=== PATIENT | male | born 1990 | race Caucasian/White ===

== ENCOUNTER 2018-02-12 16:14 | Inpatient (IN) | payer OTHER ==
[2018-02-12] MEDS: HEPARIN 25000 UNITS/250 ML 250 ML IV (17:29)
[2018-02-12] MEDS ORDERED: HEPARIN 1000 UNITS/ML 10 ML INJ IV (17:30)
[2018-02-12] MEDS ORDERED: ALBUTEROL/IPRATROPIUM (NEB) 3 ML AMP HHN (17:30)
[2018-02-12] MEDS ORDERED: NACL 0.9% 3 ML SYG IV (18:00)
[2018-02-12] MEDS ORDERED: DOCUSATE SODIUM 100 MG CAP PO (18:00)
[2018-02-12] MEDS: morphine 2 MG INJ IV ×2 (20:09→23:48)
[2018-02-12 20:58] LABS: PARTIAL THROMBOPLASTIN TIME 56.2 Sec (23.0-35.0)
[2018-02-12 21:05] LABS: ALANINE AMINOTRANSFERASE 34 IU/L (13-69); ALBUMIN 3.4 g/dl (3.3-4.9); ALKALINE PHOSPHATASE 194 IU/L (42-121); ANION GAP 11 (8-16); ASPARTATE AMINO TRANSFERASE 63 IU/L (15-46); BILIRUBIN,INDIRECT 0.5 mg/dl (0-1.1); BILIRUBIN,TOTAL 0.5 mg/dl (0.2-1.3); BLOOD UREA NITROGEN 6 mg/dl (7-20); CALCIUM 8.6 mg/dl (8.4-10.2); CARBON DIOXIDE 27 mmol/L (21-31); CHLORIDE 102 mmol/L (97-110); GLUCOSE 130 mg/dl (70-220); POTASSIUM 3.4 mmol/L (3.5-5.1); SODIUM 137 mmol/L (135-144); TOTAL PROTEIN 6.8 g/dl (6.1-8.1)
[2018-02-12] MEDS: HEPARIN 1000 UNITS/ML 10 ML INJ IV (21:22)
[2018-02-12] MEDS: HYDROCODONE/APAP (5/325) TAB PO (21:59)
[2018-02-13 03:23] LABS: ADD MAN DIFF? NO
[2018-02-13 03:25] LABS: WHITE BLOOD COUNT 11.2 10^3/ul (4.8-10.8)
[2018-02-13 03:25] LABS: BASOPHILS % 0.3 % (0.0-2.0); EOSINOPHILS # 0.1 10^3/ul (0.0-0.5); EOSINOPHILS % 1.3 % (0.0-7.0); HEMATOCRIT 32.5 % (42.0-52.0); HEMOGLOBIN 10.5 g/dl (14.0-18.0); LYMPHOCYTES % 18.2 % (15.0-51.0); MEAN CORPUSCULAR HEMOGLOBIN 27.8 pg (29.0-33.0); MEAN CORPUSCULAR HGB CONC 32.3 g/dl (32.0-37.0); MEAN PLATELET VOLUME 10.3 fl (7.4-10.4); MONOCYTE # 1.3 10^3/ul (0.3-0.9); MONOCYTES % 11.2 % (0.0-11.0); NEUTROPHIL # 7.7 10^3/ul (1.6-7.5); NEUTROPHILS % 68.6 % (39.0-77.0); PLATELET COUNT 129 10^3/UL (140-415); POSITIVE DIFF @See below; RED BLOOD COUNT 3.78 10^6/ul (4.70-6.10); RED CELL DISTRIBUTION WIDTH 13.9 % (11.5-14.5)
[2018-02-13 03:55] LABS: PARTIAL THROMBOPLASTIN TIME 93.2 Sec (23.0-35.0)
[2018-02-13] MEDS: PANTOPRAZOLE (EC) 40 MG TAB PO (06:13)
[2018-02-13] MEDS: HYDROCODONE/APAP (5/325) TAB PO ×3 (06:37→23:12)
[2018-02-13] MEDS: HEPARIN 25000 UNITS/250 ML 250 ML IV ×4 (07:49→20:30)
[2018-02-13 10:09] LABS: PARTIAL THROMBOPLASTIN TIME 62.3 Sec (23.0-35.0)
[2018-02-13] MEDS: MAGNESIUM HYDROXIDE 30ML CUP PO (10:33)
[2018-02-13] MEDS: ACETAMINOPHEN 325 MG TAB PO (10:33)
[2018-02-13] MEDS: SOD CHLORIDE 0.9% 100 ML (17:22)
[2018-02-13] MEDS: IOHEXOL 0 ML (17:23)
[2018-02-13] MEDS: IOHEXOL 350MG/ML 50 ML BTL (17:23)
[2018-02-13 17:44] LABS: INR 1.13; PROTIME 14.7 Sec (11.9-14.9); PT RATIO 1.1
[2018-02-13 18:15] LABS: URIC ACID 4.7 mg/dl (3.1-7.9)
[2018-02-13 18:22] LABS: PARTIAL THROMBOPLASTIN TIME 83.4 Sec (23.0-35.0)
[2018-02-13] MEDS: POTASSIUM CHLORIDE 100 ML IVPB ×2 (18:34→22:11)
[2018-02-13] MEDS: morphine 2 MG INJ IV (20:35)
[2018-02-13] MEDS ORDERED: APIXABAN 5 MG TABLET PO (21:00)
[2018-02-14 01:30] LABS: PARTIAL THROMBOPLASTIN TIME 95.5 Sec (23.0-35.0)
[2018-02-14] MEDS: morphine 2 MG INJ IV ×4 (02:49→23:20)
[2018-02-14] MEDS: PANTOPRAZOLE 40 MG INJ IV (06:20)
[2018-02-14] MEDS: HEPARIN 25000 UNITS/250 ML 250 ML IV (06:27)
[2018-02-14 07:00] LABS: ALANINE AMINOTRANSFERASE 104 IU/L (13-69); ALBUMIN 3.5 g/dl (3.3-4.9); ALBUMIN/GLOBULIN RATIO 0.94; ALKALINE PHOSPHATASE 254 IU/L (42-121); ANION GAP 12 (8-16); ASPARTATE AMINO TRANSFERASE 82 IU/L (15-46); BILIRUBIN,INDIRECT 0.7 mg/dl (0-1.1); BILIRUBIN,TOTAL 0.7 mg/dl (0.2-1.3); CALCIUM 8.9 mg/dl (8.4-10.2); CARBON DIOXIDE 28 mmol/L (21-31); CHLORIDE 101 mmol/L (97-110); CREATININE 0.59 mg/dl (0.61-1.24); GLUCOSE 111 mg/dl (70-220); POTASSIUM 4.1 mmol/L (3.5-5.1); SODIUM 137 mmol/L (135-144); TOTAL PROTEIN 7.2 g/dl (6.1-8.1)
[2018-02-14 07:48] LABS: BLOOD UREA NITROGEN 7 mg/dl (7-20)
[2018-02-14] MEDS: FENTAnyl 50 MCG/ML VIAL (15:10)
[2018-02-14] MEDS: LIDOCAINE 1% (MPF) 5 ML VIAL ×2 (15:10→15:32)
[2018-02-14] MEDS: MIDAZOLAM 1 MG/ML 2 ML INJ (15:15)
[2018-02-14] MEDS: SOD CHLORIDE 0.9% 250 ML (15:20)
[2018-02-14] MEDS: HYDROCODONE/APAP (5/325) TAB PO (21:47)
[2018-02-14] MEDS: ACETAMINOPHEN 325 MG TAB PO (23:19)
[2018-02-15] MEDS: PANTOPRAZOLE 40 MG INJ IV (05:28)
[2018-02-15] MEDS: morphine 2 MG INJ IV ×4 (05:29→22:45)
[2018-02-15 05:42] LABS: ADD MAN DIFF? NO
[2018-02-15 05:48] LABS: WHITE BLOOD COUNT 11.2 10^3/ul (4.8-10.8)
[2018-02-15 05:48] LABS: BASOPHILS % 0.2 % (0.0-2.0); EOSINOPHILS # 0.1 10^3/ul (0.0-0.5); EOSINOPHILS % 1.1 % (0.0-7.0); HEMATOCRIT 31.2 % (42.0-52.0); HEMOGLOBIN 10.2 g/dl (14.0-18.0); LYMPHOCYTES # 1.1 10^3/ul (0.8-2.9); LYMPHOCYTES % 9.6 % (15.0-51.0); MEAN CORPUSCULAR HEMOGLOBIN 27.7 pg (29.0-33.0); MEAN CORPUSCULAR HGB CONC 32.7 g/dl (32.0-37.0); MEAN CORPUSCULAR VOLUME 84.8 fl (82.0-101.0); MEAN PLATELET VOLUME 10.4 fl (7.4-10.4); MONOCYTE # 1.1 10^3/ul (0.3-0.9); NEUTROPHIL # 8.8 10^3/ul (1.6-7.5); NEUTROPHILS % 78.7 % (39.0-77.0); PLATELET COUNT 170 10^3/UL (140-415); RED BLOOD COUNT 3.68 10^6/ul (4.70-6.10)
[2018-02-15 06:07] LABS: PARTIAL THROMBOPLASTIN TIME 68.3 Sec (23.0-35.0)
[2018-02-15 06:10] LABS: ALANINE AMINOTRANSFERASE 85 IU/L (13-69); ALBUMIN 3.5 g/dl (3.3-4.9); ALBUMIN/GLOBULIN RATIO 0.92; ALKALINE PHOSPHATASE 256 IU/L (42-121); ANION GAP 13 (8-16); ASPARTATE AMINO TRANSFERASE 45 IU/L (15-46); BILIRUBIN,INDIRECT 0.8 mg/dl (0-1.1); BILIRUBIN,TOTAL 0.8 mg/dl (0.2-1.3); BLOOD UREA NITROGEN 6 mg/dl (7-20); CALCIUM 9.1 mg/dl (8.4-10.2); CARBON DIOXIDE 29 mmol/L (21-31); CHLORIDE 98 mmol/L (97-110); CREATININE 0.61 mg/dl (0.61-1.24); GLUCOSE 108 mg/dl (70-220); POTASSIUM 3.7 mmol/L (3.5-5.1); SODIUM 136 mmol/L (135-144); TOTAL PROTEIN 7.3 g/dl (6.1-8.1)
[2018-02-15] MEDS: HEPARIN 25000 UNITS/250 ML 250 ML IV ×3 (06:49→11:00)
[2018-02-15] MEDS: HYDROCODONE/APAP (5/325) TAB PO (13:36)
[2018-02-15 13:45] LABS: PARTIAL THROMBOPLASTIN TIME 67.3 Sec (23.0-35.0)
[2018-02-15 14:57] LABS: HEPATITIS B SURFACE ANTIGEN NEGATIVE (NEGATIVE)
[2018-02-15 15:01] LABS: CARCINOEMBRYONIC ANTIGEN 0.4 ng/ml (0.0-5.0)
[2018-02-15 15:02] LABS: CANCER ANTIGEN 19-9 < 1.4 U/ml (0.0-37.0)
[2018-02-15 15:15] LABS: HEPATITIS B CORE ANTIBODY NEGATIVE (NEGATIVE)
[2018-02-15 15:52] LABS: HEPATITIS C VIRAL ANTIBODY NEGATIVE (NEGATIVE)
[2018-02-15] MEDS: APIXABAN 5 MG TABLET PO (15:59)
[2018-02-16] MEDS: HYDROCODONE/APAP (5/325) TAB PO ×2 (00:27→14:37)
[2018-02-16] MEDS: APIXABAN 5 MG TABLET PO ×3 (00:51→21:25)
[2018-02-16] MEDS: MAGNESIUM HYDROXIDE 30ML CUP PO (05:42)
[2018-02-16] MEDS: PANTOPRAZOLE 40 MG INJ IV (05:42)
[2018-02-16] MEDS: BISACODYL (EC) 5 MG TAB PO (08:22)
[2018-02-16] MEDS ORDERED: HYDROCODONE/APAP (5/325) TAB PO (14:00)
[2018-02-16] MEDS: ONDANSETRON 4 MG INJ IV ×2 (14:26)
[2018-02-16] MEDS: LORAZEPAM (2 MG/ML PO SYG) SL (15:46)
[2018-02-16] MEDS: morphine 2 MG INJ IV ×2 (17:24→21:30)
[2018-02-16] MEDS: ALPRAZOLAM 0.25 MG TAB PO ×2 (18:34→21:25)
[2018-02-17] MEDS: HYDROCODONE/APAP (5/325) TAB PO ×4 (00:40→23:59)
[2018-02-17] MEDS: morphine 2 MG INJ IV ×4 (04:22→22:53)
[2018-02-17] MEDS: PANTOPRAZOLE (EC) 40 MG TAB PO (06:19)
[2018-02-17 06:54] LABS: ADD MAN DIFF? NO
[2018-02-17 06:58] LABS: BASOPHILS % 0.3 % (0.0-2.0); EOSINOPHILS # 0.1 10^3/ul (0.0-0.5); EOSINOPHILS % 0.7 % (0.0-7.0); HEMATOCRIT 31.2 % (42.0-52.0); HEMOGLOBIN 10.2 g/dl (14.0-18.0); LYMPHOCYTES % 9.1 % (15.0-51.0); MEAN CORPUSCULAR HEMOGLOBIN 27.5 pg (29.0-33.0); MEAN CORPUSCULAR HGB CONC 32.7 g/dl (32.0-37.0); MEAN CORPUSCULAR VOLUME 84.1 fl (82.0-101.0); MEAN PLATELET VOLUME 9.9 fl (7.4-10.4); MONOCYTE # 1.1 10^3/ul (0.3-0.9); MONOCYTES % 9.7 % (0.0-11.0); NEUTROPHIL # 8.7 10^3/ul (1.6-7.5); NEUTROPHILS % 79.5 % (39.0-77.0); PLATELET COUNT 277 10^3/UL (140-415); RED BLOOD COUNT 3.71 10^6/ul (4.70-6.10)
[2018-02-17 07:12] LABS: ANION GAP 15 (8-16); BLOOD UREA NITROGEN 8 mg/dl (7-20); CALCIUM 9.2 mg/dl (8.4-10.2); CARBON DIOXIDE 33 mmol/L (21-31); CHLORIDE 93 mmol/L (97-110); CREATININE 0.54 mg/dl (0.61-1.24); GLUCOSE 107 mg/dl (70-220); POTASSIUM 3.8 mmol/L (3.5-5.1); SODIUM 137 mmol/L (135-144)
[2018-02-17] MEDS: ALPRAZOLAM 0.25 MG TAB PO ×2 (08:09→21:19)
[2018-02-17] MEDS: APIXABAN 5 MG TABLET PO ×2 (08:09→21:19)
[2018-02-17] MEDS: BISACODYL (EC) 5 MG TAB PO (09:13)
[2018-02-17] MEDS: ONDANSETRON 4 MG INJ IV (13:22)
[2018-02-17] MEDS: LUBIPROSTONE 24 MCG CAP PO (18:39)
[2018-02-18] MEDS: morphine 2 MG INJ IV ×4 (04:15→22:06)
[2018-02-18 06:03] LABS: ALANINE AMINOTRANSFERASE 240 IU/L (13-69); ALBUMIN 3.3 g/dl (3.3-4.9); ALBUMIN/GLOBULIN RATIO 0.82; ALKALINE PHOSPHATASE 422 IU/L (42-121); ANION GAP 14 (8-16); ASPARTATE AMINO TRANSFERASE 144 IU/L (15-46); BILIRUBIN,INDIRECT 0.5 mg/dl (0-1.1); BILIRUBIN,TOTAL 0.5 mg/dl (0.2-1.3); BLOOD UREA NITROGEN 7 mg/dl (7-20); CALCIUM 9.1 mg/dl (8.4-10.2); CARBON DIOXIDE 33 mmol/L (21-31); CHLORIDE 94 mmol/L (97-110); CREATININE 0.65 mg/dl (0.61-1.24); GLUCOSE 107 mg/dl (70-220); SODIUM 137 mmol/L (135-144); TOTAL PROTEIN 7.3 g/dl (6.1-8.1)
[2018-02-18] MEDS: HYDROCODONE/APAP (5/325) TAB PO ×3 (06:31→23:46)
[2018-02-18] MEDS: PANTOPRAZOLE (EC) 40 MG TAB PO (06:31)
[2018-02-18] MEDS: ALPRAZOLAM 0.25 MG TAB PO ×2 (08:50→21:18)
[2018-02-18] MEDS: APIXABAN 5 MG TABLET PO ×2 (08:50→21:18)
[2018-02-18] MEDS: MAGNESIUM HYDROXIDE 30ML CUP PO (10:26)
[2018-02-18] MEDS: LUBIPROSTONE 24 MCG CAP PO (10:26)
[2018-02-19] MEDS: morphine LIQ (10 MG/5 ML) CUP PO ×4 (02:01→15:30)
[2018-02-19] MEDS: PANTOPRAZOLE (EC) 40 MG TAB PO (06:30)
[2018-02-19] MEDS: ALPRAZOLAM 0.25 MG TAB PO ×2 (08:11→20:59)
[2018-02-19] MEDS: APIXABAN 5 MG TABLET PO ×2 (08:11→20:59)
[2018-02-19 14:44] LABS: LACTATE DEHYDROGENASE 4071 IU/L (313-618)
[2018-02-19] MEDS: HYDROCODONE/APAP (5/325) TAB PO (18:13)
[2018-02-20] MEDS: HYDROCODONE/APAP (5/325) TAB PO ×2 (03:00→12:01)
[2018-02-20] MEDS: PANTOPRAZOLE (EC) 40 MG TAB PO (06:13)
[2018-02-20] MEDS ORDERED: ALBUTEROL 0.083% (NEB) 2.5 MG/3 ML AMP (07:00)
[2018-02-20] MEDS: ALPRAZOLAM 0.25 MG TAB PO ×2 (08:36→23:10)
[2018-02-20] MEDS: APIXABAN 5 MG TABLET PO ×2 (08:36→20:18)
[2018-02-20] MEDS: BISACODYL (EC) 5 MG TAB PO (13:52)
[2018-02-20] MEDS: morphine LIQ (10 MG/5 ML) CUP PO ×2 (14:39→20:18)
[2018-02-21] MEDS: HYDROCODONE/APAP (5/325) TAB PO ×3 (00:03→21:50)
[2018-02-21] MEDS: morphine LIQ (10 MG/5 ML) CUP PO ×3 (04:28→19:03)
[2018-02-21] MEDS: PANTOPRAZOLE (EC) 40 MG TAB PO (04:29)
[2018-02-21 05:07] LABS: WHITE BLOOD COUNT 11.8 10^3/ul (4.8-10.8)
[2018-02-21 05:07] LABS: ADD MAN DIFF? NO; BASOPHILS % 0.3 % (0.0-2.0); EOSINOPHILS # 0.1 10^3/ul (0.0-0.5); HEMATOCRIT 29.1 % (42.0-52.0); HEMOGLOBIN 9.4 g/dl (14.0-18.0); LYMPHOCYTES # 1.6 10^3/ul (0.8-2.9); LYMPHOCYTES % 13.9 % (15.0-51.0); MEAN CORPUSCULAR HEMOGLOBIN 27.2 pg (29.0-33.0); MEAN CORPUSCULAR HGB CONC 32.3 g/dl (32.0-37.0); MEAN CORPUSCULAR VOLUME 84.1 fl (82.0-101.0); MEAN PLATELET VOLUME 9.5 fl (7.4-10.4); MONOCYTE # 0.9 10^3/ul (0.3-0.9); MONOCYTES % 7.7 % (0.0-11.0); NEUTROPHIL # 8.9 10^3/ul (1.6-7.5); NEUTROPHILS % 75.4 % (39.0-77.0); PLATELET COUNT 312 10^3/UL (140-415); RED BLOOD COUNT 3.46 10^6/ul (4.70-6.10); RED CELL DISTRIBUTION WIDTH 14.9 % (11.5-14.5)
[2018-02-21 05:38] LABS: ANION GAP 11 (8-16); BLOOD UREA NITROGEN 7 mg/dl (7-20); CALCIUM 9.1 mg/dl (8.4-10.2); CARBON DIOXIDE 32 mmol/L (21-31); CHLORIDE 97 mmol/L (97-110); CREATININE 0.54 mg/dl (0.61-1.24); GLUCOSE 103 mg/dl (70-220); POTASSIUM 4.2 mmol/L (3.5-5.1); SODIUM 136 mmol/L (135-144)
[2018-02-21] MEDS: ALPRAZOLAM 0.25 MG TAB PO ×2 (09:06→20:41)
[2018-02-21] MEDS: APIXABAN 5 MG TABLET PO ×2 (09:07→20:41)
[2018-02-22] MEDS: morphine LIQ (10 MG/5 ML) CUP PO ×3 (02:10→17:24)
[2018-02-22] MEDS: PANTOPRAZOLE (EC) 40 MG TAB PO (06:13)
[2018-02-22] MEDS: HYDROCODONE/APAP (5/325) TAB PO ×2 (06:13→14:27)
[2018-02-22] MEDS: APIXABAN 5 MG TABLET PO (10:14)
[2018-02-22] MEDS: ALPRAZOLAM 0.25 MG TAB PO (10:18)
== END 2018-02-22 19:00 | disposition home health service (06) | DRG 722 ==
LOC: MS1 02-18 00:15 → TEL 16:14
PROC: 0FB13ZX Excision of Right Lobe Liver, Percutaneous Approach, Diagnostic (ICD-10-PCS; principal; 2018-02-14)
PROC: 02HV33Z Insertion of Infusion Device into Superior Vena Cava, Percutaneous Approach (ICD-10-PCS; 2018-02-19)
PROC: B548ZZA Ultrasonography of Superior Vena Cava, Guidance (ICD-10-PCS; 2018-02-19)
DX: C62.90 Malignant neoplasm of unspecified testis, unspecified whether descended or undescended (principal); I26.99 Other pulmonary embolism without acute cor pulmonale; I82.220 Acute embolism and thrombosis of inferior vena cava; C78.7 Secondary malignant neoplasm of liver and intrahepatic bile duct; M48.02 Spinal stenosis, cervical region; M54.30 Sciatica, unspecified side; R59.1 Generalized enlarged lymph nodes; M50.31 Other cervical disc degeneration, high cervical region; K59.00 Constipation, unspecified; Z79.02 Long term (current) use of antithrombotics/antiplatelets
CPT/HCPCS: 36569; 70551; 71045; 72141; 72146; 72158; 72196; 74178; 76870; 76937; 77012; 80048; 80053; 82105; 82378; 83036; 83615; 84560; 84702; 85025; 85610; 85730; 86301; 86704; 86803; 87340; 88307; 88313; 88331; 94060; 94664; 94726; 94729; 97110; 97116; 97162; 97530

== ENCOUNTER 2018-03-01 12:12 | Inpatient (IN) | payer OTHER ==
[2018-03-01] MEDS: HYDROmorphONE 1 MG/ML SYG IV ×2 (13:08→18:51)
[2018-03-01] MEDS: SOD CHLORIDE 0.9% 1,000 ML IV (13:08)
[2018-03-01] MEDS: ONDANSETRON 4 MG INJ IV (13:08)
[2018-03-01 13:19] LABS: ADD MAN DIFF? NO
[2018-03-01 13:23] LABS: BASOPHIL # 0.1 10^3/ul (0.0-0.1); BASOPHILS % 0.5 % (0.0-2.0); EOSINOPHILS # 0.1 10^3/ul (0.0-0.5); HEMATOCRIT 34.5 % (42.0-52.0); HEMOGLOBIN 10.9 g/dl (14.0-18.0); LYMPHOCYTES # 1.1 10^3/ul (0.8-2.9); LYMPHOCYTES % 11.1 % (15.0-51.0); MEAN CORPUSCULAR HEMOGLOBIN 26.5 pg (29.0-33.0); MEAN CORPUSCULAR HGB CONC 31.6 g/dl (32.0-37.0); MEAN CORPUSCULAR VOLUME 83.9 fl (82.0-101.0); MONOCYTE # 0.6 10^3/ul (0.3-0.9); MONOCYTES % 6.1 % (0.0-11.0); NEUTROPHILS % 80.3 % (39.0-77.0); PLATELET COUNT 477 10^3/UL (140-415); RED BLOOD COUNT 4.11 10^6/ul (4.70-6.10); RED CELL DISTRIBUTION WIDTH 14.3 % (11.5-14.5)
[2018-03-01 13:40] LABS: ALBUMIN 4.1 g/dl (3.3-4.9); ALBUMIN/GLOBULIN RATIO 0.87; ALKALINE PHOSPHATASE 649 IU/L (42-121); ANION GAP 13 (8-16); ASPARTATE AMINO TRANSFERASE 38 IU/L (15-46); BILIRUBIN,INDIRECT 0.2 mg/dl (0-1.1); BILIRUBIN,TOTAL 0.2 mg/dl (0.2-1.3); BLOOD UREA NITROGEN 9 mg/dl (7-20); CALCIUM 9.6 mg/dl (8.4-10.2); CARBON DIOXIDE 30 mmol/L (21-31); CHLORIDE 100 mmol/L (97-110); CREATININE 0.55 mg/dl (0.61-1.24); GLUCOSE 121 mg/dl (70-220); LIPASE 48 U/L (23-300); POTASSIUM 4.2 mmol/L (3.5-5.1); SODIUM 139 mmol/L (135-144); TOTAL PROTEIN 8.8 g/dl (6.1-8.1)
[2018-03-01 13:41] LABS: INR 1.16; PT RATIO 1.2
[2018-03-01 13:42] LABS: PARTIAL THROMBOPLASTIN TIME 38.2 Sec (23.0-35.0)
[2018-03-01 13:59] LABS: ALANINE AMINOTRANSFERASE 75 IU/L (13-69)
[2018-03-01] MEDS ORDERED: ONDANSETRON 4 MG INJ IV (14:00)
[2018-03-01] MEDS ORDERED: ACETAMINOPHEN 325 MG TAB PO (14:00)
[2018-03-01] MEDS: HYDROmorphONE 2 MG/ML SYG IV (14:14)
[2018-03-01 14:56] LABS: ADD UMIC NO; UR ASCORBIC ACID NEGATIVE (NEGATIVE); UR BILIRUBIN (Dip) NEGATIVE (NEGATIVE); UR BLOOD (Dip) NEGATIVE (NEGATIVE); UR CLARITY CLEAR (CLEAR); UR COLOR YELLOW (YELLOW); UR GLUCOSE (Dip) NEGATIVE (NEGATIVE); UR KETONES (Dip) NEGATIVE (NEGATIVE); UR LEUKOCYTE ESTERASE (Dip) NEGATIVE Leu/ul (NEGATIVE); UR NITRITE (Dip) NEGATIVE (NEGATIVE); UR SPECIFIC GRAVITY (Dip) 1.019 (1.003-1.030); UR TOTAL PROTEIN (Dip) NEGATIVE (NEGATIVE); UR UROBILINOGEN (Dip) 1+ mg/dL (NEGATIVE)
[2018-03-01] MEDS: morphine 10 MG INJ IV (16:14)
[2018-03-01] MEDS: LUBIPROSTONE 8 MCG CAPSULE PO (20:41)
[2018-03-01] MEDS: APIXABAN 5 MG TABLET PO (20:41)
[2018-03-01] MEDS ORDERED: CARISOPRODOL 350 MG TAB PO (21:00)
[2018-03-01] MEDS: HYDROCODONE/APAP (5/325) TAB PO (21:59)
[2018-03-02] MEDS: HYDROmorphONE 1 MG/ML SYG IV ×5 (01:22→20:09)
[2018-03-02] MEDS: HYDROCODONE/APAP (5/325) TAB PO ×3 (04:40→22:30)
[2018-03-02 05:14] LABS: ADD MAN DIFF? NO
[2018-03-02 05:26] LABS: BASOPHILS % 0.4 % (0.0-2.0); EOSINOPHILS # 0.2 10^3/ul (0.0-0.5); EOSINOPHILS % 2.2 % (0.0-7.0); HEMATOCRIT 31.9 % (42.0-52.0); HEMOGLOBIN 10.1 g/dl (14.0-18.0); LYMPHOCYTES # 1.6 10^3/ul (0.8-2.9); LYMPHOCYTES % 17.2 % (15.0-51.0); MEAN CORPUSCULAR HEMOGLOBIN 26.9 pg (29.0-33.0); MEAN CORPUSCULAR HGB CONC 31.7 g/dl (32.0-37.0); MEAN CORPUSCULAR VOLUME 85.1 fl (82.0-101.0); MEAN PLATELET VOLUME 9.4 fl (7.4-10.4); MONOCYTE # 0.6 10^3/ul (0.3-0.9); MONOCYTES % 6.5 % (0.0-11.0); NEUTROPHIL # 6.6 10^3/ul (1.6-7.5); NEUTROPHILS % 72.6 % (39.0-77.0); PLATELET COUNT 384 10^3/UL (140-415); RED BLOOD COUNT 3.75 10^6/ul (4.70-6.10); RED CELL DISTRIBUTION WIDTH 14.5 % (11.5-14.5)
[2018-03-02 05:26] LABS: WHITE BLOOD COUNT 9.1 10^3/ul (4.8-10.8)
[2018-03-02] MEDS: PANTOPRAZOLE (EC) 40 MG TAB PO (05:50)
[2018-03-02 06:00] LABS: ANION GAP 11 (8-16); BLOOD UREA NITROGEN 6 mg/dl (7-20); CARBON DIOXIDE 29 mmol/L (21-31); CHLORIDE 102 mmol/L (97-110); CREATININE 0.56 mg/dl (0.61-1.24); GLUCOSE 92 mg/dl (70-220); POTASSIUM 3.9 mmol/L (3.5-5.1); SODIUM 138 mmol/L (135-144)
[2018-03-02] MEDS: APIXABAN 5 MG TABLET PO ×2 (08:40→20:09)
[2018-03-02] MEDS: LUBIPROSTONE 8 MCG CAPSULE PO ×2 (08:40→20:08)
[2018-03-02] MEDS: CYCLOBENZAPRINE 10 MG TAB PO (09:08)
[2018-03-03] MEDS: HYDROmorphONE 1 MG/ML SYG IV ×6 (00:24→21:47)
[2018-03-03] MEDS: PANTOPRAZOLE (EC) 40 MG TAB PO (06:38)
[2018-03-03] MEDS: HYDROCODONE/APAP (5/325) TAB PO ×3 (06:39→23:13)
[2018-03-03] MEDS: LUBIPROSTONE 8 MCG CAPSULE PO ×2 (08:43→21:47)
[2018-03-03] MEDS: APIXABAN 5 MG TABLET PO ×2 (09:42→21:47)
[2018-03-04] MEDS: HYDROmorphONE 1 MG/ML SYG IV ×6 (01:49→21:27)
[2018-03-04] MEDS: HYDROCODONE/APAP (5/325) TAB PO ×4 (04:38→22:59)
[2018-03-04] MEDS: PANTOPRAZOLE (EC) 40 MG TAB PO (05:33)
[2018-03-04] MEDS: LUBIPROSTONE 8 MCG CAPSULE PO ×2 (08:49→20:32)
[2018-03-04] MEDS: APIXABAN 5 MG TABLET PO ×2 (08:49→20:32)
[2018-03-05] MEDS: HYDROmorphONE 1 MG/ML SYG IV ×6 (01:44→23:04)
[2018-03-05] MEDS: HYDROCODONE/APAP (5/325) TAB PO ×4 (03:39→17:27)
[2018-03-05] MEDS: PANTOPRAZOLE (EC) 40 MG TAB PO (06:11)
[2018-03-05] MEDS: LUBIPROSTONE 8 MCG CAPSULE PO ×2 (08:42→20:53)
[2018-03-05] MEDS: APIXABAN 5 MG TABLET PO ×2 (08:43→20:53)
[2018-03-05 10:35] LABS: ADD MAN DIFF? NO
[2018-03-05 10:41] LABS: BASOPHILS % 0.4 % (0.0-2.0); EOSINOPHILS # 0.2 10^3/ul (0.0-0.5); EOSINOPHILS % 2.1 % (0.0-7.0); HEMATOCRIT 33.5 % (42.0-52.0); HEMOGLOBIN 10.4 g/dl (14.0-18.0); LYMPHOCYTES % 14.6 % (15.0-51.0); MEAN CORPUSCULAR HEMOGLOBIN 26.3 pg (29.0-33.0); MEAN CORPUSCULAR VOLUME 84.8 fl (82.0-101.0); MEAN PLATELET VOLUME 9.8 fl (7.4-10.4); MONOCYTE # 0.4 10^3/ul (0.3-0.9); MONOCYTES % 5.5 % (0.0-11.0); NEUTROPHIL # 5.5 10^3/ul (1.6-7.5); NEUTROPHILS % 76.4 % (39.0-77.0); PLATELET COUNT 320 10^3/UL (140-415); RED BLOOD COUNT 3.95 10^6/ul (4.70-6.10); RED CELL DISTRIBUTION WIDTH 14.4 % (11.5-14.5)
[2018-03-05 10:41] LABS: WHITE BLOOD COUNT 7.1 10^3/ul (4.8-10.8)
[2018-03-05 11:16] LABS: ALANINE AMINOTRANSFERASE 44 IU/L (13-69); ALBUMIN 3.5 g/dl (3.3-4.9); ALBUMIN/GLOBULIN RATIO 0.83; ALKALINE PHOSPHATASE 441 IU/L (42-121); ANION GAP 11 (8-16); ASPARTATE AMINO TRANSFERASE 47 IU/L (15-46); BILIRUBIN,INDIRECT 0.3 mg/dl (0-1.1); BILIRUBIN,TOTAL 0.3 mg/dl (0.2-1.3); BLOOD UREA NITROGEN 5 mg/dl (7-20); CALCIUM 9.6 mg/dl (8.4-10.2); CARBON DIOXIDE 32 mmol/L (21-31); CHLORIDE 96 mmol/L (97-110); CREATININE 0.57 mg/dl (0.61-1.24); GLUCOSE 128 mg/dl (70-220); POTASSIUM 3.6 mmol/L (3.5-5.1); SODIUM 135 mmol/L (135-144); TOTAL PROTEIN 7.7 g/dl (6.1-8.1)
[2018-03-05] MEDS: morphine (ER) 15 MG TAB PO (20:53)
[2018-03-06] MEDS: HYDROCODONE/APAP (5/325) TAB PO ×2 (00:59→15:15)
[2018-03-06] MEDS: HYDROmorphONE 1 MG/ML SYG IV ×7 (03:04→23:10)
[2018-03-06] MEDS: PANTOPRAZOLE (EC) 40 MG TAB PO (05:56)
[2018-03-06] MEDS: APIXABAN 5 MG TABLET PO ×2 (08:43→20:01)
[2018-03-06] MEDS: morphine (ER) 15 MG TAB PO ×2 (08:44→20:01)
[2018-03-06] MEDS: LUBIPROSTONE 8 MCG CAPSULE PO ×2 (11:15→20:01)
[2018-03-06] MEDS ORDERED: ACETAMINOPHEN 500 MG TAB PO (12:30)
[2018-03-06] MEDS ORDERED: DIPHENHYDRAMINE 50 MG INJ IV (14:00)
[2018-03-06] MEDS ORDERED: DEXAMETHASONE 4 MG/ML 20 MG in SOD CHLORIDE 0.9% 50 ML IV (14:00)
[2018-03-06] MEDS: SOD CHLORIDE 0.9% 500 ML IVPB (14:51)
[2018-03-06] MEDS: SOD CHLORIDE 0.9% IV ×3 (15:56→23:38)
[2018-03-06] MEDS: ONDANSETRON IV (15:56)
[2018-03-06] MEDS: DEXAMETHASONE IV (15:56)
[2018-03-06] MEDS: SOD CHLORIDE 0.9% 1,000 ML IV (15:57)
[2018-03-06] MEDS: CISPLATIN IV (17:26)
[2018-03-06] MEDS: ETOPOSIDE IV (23:38)
[2018-03-07] MEDS: HYDROCODONE/APAP (5/325) TAB PO ×3 (00:36→21:46)
[2018-03-07] MEDS: HYDROmorphONE 1 MG/ML SYG IV ×8 (02:01→23:45)
[2018-03-07] MEDS: SOD CHLORIDE 0.9% 1,000 ML IV ×4 (03:20→20:50)
[2018-03-07] MEDS: BLEOMYCIN IVPB (04:31)
[2018-03-07] MEDS: SOD CHLORIDE 0.9% IVPB (04:31)
[2018-03-07] MEDS: PANTOPRAZOLE (EC) 40 MG TAB PO (05:02)
[2018-03-07] MEDS: morphine (ER) 15 MG TAB PO ×2 (08:12→20:12)
[2018-03-07] MEDS: APIXABAN 5 MG TABLET PO ×2 (08:12→20:10)
[2018-03-07 08:50] LABS: ADD MAN DIFF? NO
[2018-03-07 09:00] LABS: WHITE BLOOD COUNT 10.6 10^3/ul (4.8-10.8)
[2018-03-07 09:00] LABS: BASOPHILS % 0.1 % (0.0-2.0); EOSINOPHILS % 0.3 % (0.0-7.0); HEMATOCRIT 31.4 % (42.0-52.0); HEMOGLOBIN 9.6 g/dl (14.0-18.0); LYMPHOCYTES % 9.8 % (15.0-51.0); MEAN CORPUSCULAR HEMOGLOBIN 26.1 pg (29.0-33.0); MEAN CORPUSCULAR HGB CONC 30.6 g/dl (32.0-37.0); MEAN CORPUSCULAR VOLUME 85.3 fl (82.0-101.0); MEAN PLATELET VOLUME 9.9 fl (7.4-10.4); MONOCYTE # 0.8 10^3/ul (0.3-0.9); MONOCYTES % 7.5 % (0.0-11.0); NEUTROPHIL # 8.6 10^3/ul (1.6-7.5); NEUTROPHILS % 81.7 % (39.0-77.0); PLATELET COUNT 237 10^3/UL (140-415); RED BLOOD COUNT 3.68 10^6/ul (4.70-6.10); RED CELL DISTRIBUTION WIDTH 14.4 % (11.5-14.5)
[2018-03-07 09:21] LABS: MAGNESIUM 1.8 mg/dl (1.7-2.5)
[2018-03-07 09:21] LABS: PHOSPHORUS 4.1 mg/dl (2.5-4.9)
[2018-03-07 09:22] LABS: ANION GAP 7 (5-13); BLOOD UREA NITROGEN 6 mg/dl (7-20); CALCIUM 8.8 mg/dl (8.4-10.2); CARBON DIOXIDE 30 mmol/L (21-31); CHLORIDE 101 mmol/L (97-110); CREATININE 0.56 mg/dl (0.61-1.24); GLUCOSE 91 mg/dl (70-220); POTASSIUM 3.9 mmol/L (3.5-5.1); SODIUM 138 mmol/L (135-144)
[2018-03-07] MEDS: LUBIPROSTONE 8 MCG CAPSULE PO ×2 (11:45→20:10)
[2018-03-07] MEDS: SOD CHLORIDE 0.9% 500 ML IVPB (15:10)
[2018-03-07] MEDS: DEXAMETHASONE IV (17:20)
[2018-03-07] MEDS: SOD CHLORIDE 0.9% IV ×3 (17:20→22:22)
[2018-03-07] MEDS: ONDANSETRON IV (17:20)
[2018-03-07] MEDS: CISPLATIN IV (18:09)
[2018-03-07] MEDS: ETOPOSIDE IV (22:22)
[2018-03-08] MEDS: HYDROmorphONE 1 MG/ML SYG IV ×7 (02:50→21:04)
[2018-03-08 05:13] LABS: ADD MAN DIFF? NO
[2018-03-08 05:27] LABS: WHITE BLOOD COUNT 9.3 10^3/ul (4.8-10.8)
[2018-03-08 05:27] LABS: BASOPHILS % 0.2 % (0.0-2.0); EOSINOPHILS % 0.1 % (0.0-7.0); HEMATOCRIT 31.5 % (42.0-52.0); HEMOGLOBIN 9.9 g/dl (14.0-18.0); LYMPHOCYTES # 0.7 10^3/ul (0.8-2.9); LYMPHOCYTES % 7.6 % (15.0-51.0); MEAN CORPUSCULAR HEMOGLOBIN 26.7 pg (29.0-33.0); MEAN CORPUSCULAR HGB CONC 31.4 g/dl (32.0-37.0); MEAN CORPUSCULAR VOLUME 84.9 fl (82.0-101.0); MEAN PLATELET VOLUME 10.1 fl (7.4-10.4); MONOCYTE # 0.5 10^3/ul (0.3-0.9); MONOCYTES % 4.9 % (0.0-11.0); NEUTROPHIL # 8.1 10^3/ul (1.6-7.5); NEUTROPHILS % 86.8 % (39.0-77.0); PLATELET COUNT 265 10^3/UL (140-415); RED BLOOD COUNT 3.71 10^6/ul (4.70-6.10); RED CELL DISTRIBUTION WIDTH 14.6 % (11.5-14.5)
[2018-03-08 05:47] LABS: MAGNESIUM 1.8 mg/dl (1.7-2.5)
[2018-03-08] MEDS: PANTOPRAZOLE (EC) 40 MG TAB PO (05:48)
[2018-03-08 06:00] LABS: ANION GAP 10 (5-13); BLOOD UREA NITROGEN 6 mg/dl (7-20); CALCIUM 8.7 mg/dl (8.4-10.2); CARBON DIOXIDE 25 mmol/L (21-31); CHLORIDE 102 mmol/L (97-110); CREATININE 0.53 mg/dl (0.61-1.24); GLUCOSE 98 mg/dl (70-220); POTASSIUM 4.2 mmol/L (3.5-5.1); SODIUM 137 mmol/L (135-144)
[2018-03-08] MEDS: SOD CHLORIDE 0.9% 1,000 ML IV ×2 (06:00→19:20)
[2018-03-08] MEDS: LUBIPROSTONE 8 MCG CAPSULE PO ×2 (08:30→21:00)
[2018-03-08] MEDS: morphine (ER) 15 MG TAB PO ×2 (08:30→20:34)
[2018-03-08] MEDS: APIXABAN 5 MG TABLET PO ×2 (08:30→20:34)
[2018-03-08] MEDS: HYDROCODONE/APAP (5/325) TAB PO (10:45)
[2018-03-08 14:00] LABS: IRON 32 ug/dl (35-150)
[2018-03-08 14:10] LABS: % IRON SATURATION 13 % SAT (22-52); TOTAL IRON BINDING CAPACITY 245 ug/dl (241-421)
[2018-03-08] MEDS: SOD CHLORIDE 0.9% 500 ML IVPB (16:15)
[2018-03-08] MEDS: ONDANSETRON IV (17:23)
[2018-03-08] MEDS: APREPITANT PO (17:23)
[2018-03-08] MEDS: DEXAMETHASONE IV (17:23)
[2018-03-08] MEDS: SOD CHLORIDE 0.9% IV ×3 (17:23→22:14)
[2018-03-08] MEDS: CISPLATIN IV (18:02)
[2018-03-08] MEDS: ETOPOSIDE IV (22:14)
[2018-03-09] MEDS: HYDROmorphONE 1 MG/ML SYG IV ×8 (00:05→21:54)
[2018-03-09] MEDS: LUBIPROSTONE 8 MCG CAPSULE PO ×3 (02:36→20:57)
[2018-03-09] MEDS: SOD CHLORIDE 0.9% 1,000 ML IV ×3 (02:42→22:00)
[2018-03-09] MEDS: PANTOPRAZOLE (EC) 40 MG TAB PO (06:08)
[2018-03-09] MEDS: morphine (ER) 15 MG TAB PO ×2 (08:49→20:57)
[2018-03-09] MEDS: APIXABAN 5 MG TABLET PO ×2 (08:49→20:57)
[2018-03-09] MEDS: PROCHLORPERAZINE 10 MG INJ IV (12:38)
[2018-03-09] MEDS: SOD CHLORIDE 0.9% 500 ML IVPB (16:22)
[2018-03-09] MEDS: APREPITANT 80 MG CAPSULE PO (17:39)
[2018-03-09] MEDS: ONDANSETRON IV (17:40)
[2018-03-09] MEDS: DEXAMETHASONE IV (17:40)
[2018-03-09] MEDS: SOD CHLORIDE 0.9% IV ×3 (17:40→23:40)
[2018-03-09] MEDS: CISPLATIN IV (18:34)
[2018-03-09] MEDS: ETOPOSIDE IV (23:40)
[2018-03-10] MEDS: HYDROmorphONE 1 MG/ML SYG IV ×8 (01:01→22:01)
[2018-03-10] MEDS: PANTOPRAZOLE (EC) 40 MG TAB PO (06:51)
[2018-03-10] MEDS: LUBIPROSTONE 8 MCG CAPSULE PO ×2 (09:00→21:00)
[2018-03-10] MEDS: morphine (ER) 15 MG TAB PO ×2 (09:00→21:00)
[2018-03-10] MEDS: APIXABAN 5 MG TABLET PO ×2 (09:00→21:00)
[2018-03-10] MEDS: SOD CHLORIDE 0.9% 1,000 ML IV (11:20)
[2018-03-10] MEDS: PROCHLORPERAZINE 10 MG INJ IV (12:26)
[2018-03-10] MEDS: APREPITANT 80 MG CAPSULE PO (17:16)
[2018-03-10] MEDS: SOD CHLORIDE 0.9% 500 ML IVPB (17:20)
[2018-03-10] MEDS: ONDANSETRON IV (18:00)
[2018-03-10] MEDS: SOD CHLORIDE 0.9% IV ×3 (18:00→23:50)
[2018-03-10] MEDS: DEXAMETHASONE IV (18:00)
[2018-03-10] MEDS: CISPLATIN IV (18:36)
[2018-03-10] MEDS ORDERED: morphine (ER) 15 MG TAB PO (21:00)
[2018-03-10] MEDS: ETOPOSIDE IV (23:50)
[2018-03-11] MEDS: HYDROmorphONE 1 MG/ML SYG IV ×4 (01:06→10:35)
[2018-03-11] MEDS: PANTOPRAZOLE (EC) 40 MG TAB PO (05:12)
[2018-03-11] MEDS: morphine (ER) 15 MG TAB PO ×3 (09:55→21:41)
[2018-03-11] MEDS: SPIRONOLACTONE 25 MG TAB PO (09:55)
[2018-03-11] MEDS: APIXABAN 5 MG TABLET PO ×2 (09:55→21:40)
[2018-03-11] MEDS: LUBIPROSTONE 8 MCG CAPSULE PO ×2 (09:56→21:40)
[2018-03-11 11:04] LABS: ADD MAN DIFF? NO
[2018-03-11 11:07] LABS: WHITE BLOOD COUNT 7.5 10^3/ul (4.8-10.8)
[2018-03-11 11:07] LABS: EOSINOPHILS % 0.3 % (0.0-7.0); HEMATOCRIT 30.7 % (42.0-52.0); HEMOGLOBIN 9.7 g/dl (14.0-18.0); LYMPHOCYTES # 0.7 10^3/ul (0.8-2.9); LYMPHOCYTES % 9.8 % (15.0-51.0); MEAN CORPUSCULAR HEMOGLOBIN 26.1 pg (29.0-33.0); MEAN CORPUSCULAR HGB CONC 31.6 g/dl (32.0-37.0); MEAN CORPUSCULAR VOLUME 82.7 fl (82.0-101.0); MEAN PLATELET VOLUME 9.6 fl (7.4-10.4); MONOCYTES % 0.4 % (0.0-11.0); NEUTROPHIL # 6.7 10^3/ul (1.6-7.5); NEUTROPHILS % 88.8 % (39.0-77.0); PLATELET COUNT 233 10^3/UL (140-415); RED BLOOD COUNT 3.71 10^6/ul (4.70-6.10); RED CELL DISTRIBUTION WIDTH 14.2 % (11.5-14.5)
[2018-03-11 11:22] LABS: ANION GAP 7 (5-13); BLOOD UREA NITROGEN 11 mg/dl (7-20); CALCIUM 8.9 mg/dl (8.4-10.2); CARBON DIOXIDE 30 mmol/L (21-31); CHLORIDE 95 mmol/L (97-110); CREATININE 0.54 mg/dl (0.61-1.24); GLUCOSE 104 mg/dl (70-220); POTASSIUM 3.8 mmol/L (3.5-5.1); SODIUM 132 mmol/L (135-144)
[2018-03-11] MEDS: HYDROmorphONE 2 MG TAB PO ×4 (13:28→22:47)
[2018-03-11] MEDS: traMADol 50 MG TAB PO (17:40)
[2018-03-12] MEDS: HYDROmorphONE 2 MG TAB PO ×3 (01:50→10:52)
[2018-03-12] MEDS: PANTOPRAZOLE (EC) 40 MG TAB PO (05:22)
[2018-03-12] MEDS: SPIRONOLACTONE 25 MG TAB PO (08:43)
[2018-03-12] MEDS: LUBIPROSTONE 8 MCG CAPSULE PO (08:43)
[2018-03-12] MEDS: morphine (ER) 15 MG TAB PO ×2 (08:43→12:58)
[2018-03-12] MEDS: APIXABAN 5 MG TABLET PO (08:43)
[2018-03-12] MEDS: PROCHLORPERAZINE 10 MG INJ IV (10:53)
== END 2018-03-12 13:30 | disposition home health service (06) | DRG 552 ==
LOC: E/R 12:12 → PP2 13:52 → MS1 21:52
PROC: 3E04305 Introduction of Other Antineoplastic into Central Vein, Percutaneous Approach (ICD-10-PCS; principal; 2018-03-05)
DX: M51.26 Other intervertebral disc displacement, lumbar region (principal); C78.7 Secondary malignant neoplasm of liver and intrahepatic bile duct; M53.3 Sacrococcygeal disorders, not elsewhere classified; M47.9 Spondylosis, unspecified; C62.90 Malignant neoplasm of unspecified testis, unspecified whether descended or undescended; Z86.711 Personal history of pulmonary embolism; M51.34 Other intervertebral disc degeneration, thoracic region; D64.9 Anemia, unspecified; R74.8 Abnormal levels of other serum enzymes; Z79.899 Other long term (current) drug therapy
CPT/HCPCS: 36415; 80048; 80053; 81003; 82728; 83540; 83690; 83735; 84100; 85025; 85610; 85730; 96374; 96375; 97116; 97162; 97530; 99285-25; G0378; J9040; J9181

== ENCOUNTER → 2018-05-10 | Outpatient (CLI) | payer OTHER | END | disposition home or self-care (01) | LOC: PUL 09:09 | DX: C62.90 Malignant neoplasm of unspecified testis, unspecified whether descended or undescended (principal) | CPT/HCPCS: 94010; 94726; 94729 ==

== ENCOUNTER 2018-11-06 00:23 | Emergency (ER) | payer OTHER ==
[2018-11-06] MEDS: IBUPROFEN 600 MG TAB PO (03:25)
[2018-11-06 03:52] LABS: ADD UMIC NO; UR ASCORBIC ACID NEGATIVE (NEGATIVE); UR BILIRUBIN (Dip) NEGATIVE (NEGATIVE); UR BLOOD (Dip) NEGATIVE (NEGATIVE); UR CLARITY CLEAR (CLEAR); UR COLOR YELLOW (YELLOW); UR GLUCOSE (Dip) NEGATIVE (NEGATIVE); UR KETONES (Dip) NEGATIVE (NEGATIVE); UR LEUKOCYTE ESTERASE (Dip) NEGATIVE Leu/ul (NEGATIVE); UR NITRITE (Dip) NEGATIVE (NEGATIVE); UR SPECIFIC GRAVITY (Dip) 1.024 (1.003-1.030); UR TOTAL PROTEIN (Dip) NEGATIVE (NEGATIVE); UR UROBILINOGEN (Dip) NEGATIVE (NEGATIVE)
== END 2018-11-06 05:52 | disposition home or self-care (01) ==
LOC: FTE 00:23
DX: N50.811 Right testicular pain (principal); Z85.47 Personal history of malignant neoplasm of testis
CPT/HCPCS: 76870; 81003; 87591; 99284-25